=== PATIENT | male | born 1955 | race Caucasian/White ===

== ENCOUNTER 2020-03-22 15:15 | Emergency (ER) | payer OTHER ==
[~2020-03-22] VITALS: Ht 406.4 cm; Wt 96.2 kg
[2020-03-22] MEDS ORDERED: ATORVASTATIN CA40 M1 PO (15:38)
[2020-03-22] MEDS ORDERED: CEPHALEXIN500 M1 PO (16:31)
== END 2020-03-22 16:35 | disposition home or self-care (01) ==
LOC: ED 15:15
DX: S61.012A Laceration without foreign body of left thumb without damage to nail, initial encounter (principal); Z23 Encounter for immunization; Z79.899 Other long term (current) drug therapy; W29.8XXA Contact with other powered hand tools and household machinery, initial encounter; Y93.89 Activity, other specified; Y92.89 Other specified places as the place of occurrence of the external cause; Y99.8 Other external cause status

== ENCOUNTER 2021-08-02 17:34 | Emergency (ER) | payer OTHER ==
[~2021-08-02] VITALS: Ht 177.8 cm; Wt 99.8 kg
[~2021-08-02 17:34] MED LIST: ATORVASTATIN CA40 M1 PO; CEPHALEXIN500 M1 PO
== END 2021-08-02 18:42 | disposition short-term general hospital (02) ==
LOC: ED 17:34
DX: S61.211A Laceration without foreign body of left index finger without damage to nail, initial encounter (principal); S61.213A Laceration without foreign body of left middle finger without damage to nail, initial encounter; S61.215A Laceration without foreign body of left ring finger without damage to nail, initial encounter; W45.8XXA Other foreign body or object entering through skin, initial encounter; Y93.89 Activity, other specified; Y92.89 Other specified places as the place of occurrence of the external cause; Y99.8 Other external cause status